=== PATIENT | female | born 1975 | race Caucasian/White ===

== ENCOUNTER 2018-04-13 10:37 | Day surgery (SDC) | payer BC ==
[2018-04-10 12:40] VITALS: BMI 25.0
[~2018-04-13 10:37] MED LIST: DEXAMETHASONE SOD PHOSPHATE 10 MG/ML 1 ML VIAL IV ONE; DEXAMETHASONE SOD PHOSPHATE 4 MG/ML 1 ML VIAL IV ONE; FAMOTIDINE 20 MG/2 ML VIAL IV ONE; LACTATED RINGERS 1,000 ML IV SCH; LIDOCAINE 1% 20 ML VIAL (10MG/ML) FOR IV START INTRADERMA PRN; MELOXICAM 7.5 MG TAB PO ONE; MORPHINE SULFATE 4 MG/ML SYRINGE IV PRN; ONDANSETRON 4 MG/2 ML VIAL IVP ONE; ceFAZolin IN SWFI 2 GM/20 ML SYRINGE IVP ONE
[2018-04-13] MEDS ORDERED: OXYMETAZOLINE 0.05% NASL SPRAY 1 SPRAY BOTTLE EA NOSTRIL ONE (11:15)
[2018-04-13 11:18] VITALS: RESP 16
[2018-04-13] MEDS: ONDANSETRON 4 MG/2 ML VIAL IVP ONE ×2 (11:36→15:30)
[2018-04-13] MEDS ORDERED: EPINEPHrine 1 MG/ML 1 ML AMP IRRIGATION ONE ×2 (12:21→13:03)
[2018-04-13] MEDS ORDERED: LIDOCAINE 1%-EPI 1:100,000 20 ML VIAL SQ ONE ×3 (12:21→13:38)
[2018-04-13] MEDS ORDERED: FLUORESCEIN STRIPS 1 MG STRIP MISCELLANE ONE ×2 (12:22→13:03)
[2018-04-13] MEDS ORDERED: fentaNYL (PF) 50 MCG/ML 2 ML AMP ONE (12:25)
[2018-04-13] MEDS ORDERED: LIDOCAINE 1% INJ 10MG/ML (20 ML MDV) ONE (12:25)
[2018-04-13] MEDS ORDERED: DEXAMETHASONE SOD PHOS (MDV) 100 MG/10 ML VIAL ONE (12:25)
[2018-04-13] MEDS ORDERED: MIDAZOLAM 2 MG/2 ML VIAL ONE (12:25)
[2018-04-13] MEDS ORDERED: SUCCINYLCHOLINE CHLORIDE 100 MG/5 ML SYR IV ONE (12:25)
[2018-04-13] MEDS ORDERED: PROPOFOL 10 MG/ML 20 ML VIAL IV ONE (12:25)
[2018-04-13] MEDS ORDERED: EPINEPHrine 1 MG/ML (MDV) 30 ML VIAL ONE (13:03)
[2018-04-13] MEDS ORDERED: EPINEPHrine 1 MG/ML (MDV) 30 ML VIAL IRRIGATION ONE (13:03)
[2018-04-13 14:10] VITALS: TEMP 97.2
[2018-04-13] MEDS: MEPERIDINE 50 MG/ML SYRINGE IVP ONE ×2 (14:19→14:25)
--- NOTE | 2018-04-13 14:27 | P.OP ---
Date of Procedure: 04/13/18 Preoperative Diagnosis: Chronic sinusitis Deviated nasal septum to the left Bilateral hypertrophy of nasal inferior turbinates, obstructive Postoperative Diagnosis: Same Procedure(s) Performed: Bilateral functional endoscopic sinus surgery with placement of propel Septoplasty Bilateral submucosal resection of the inferior turbinates with outfracturing compression Anesthesia: DIYA Surgeon: James Medina Estimated Blood Loss (ml): 20 Pathology: other (sinonasal) Condition: stable Disposition: PACU Indications for Procedure: This patient has chronic sinus symptoms and has failed medical therapy. Her chronic sinusitis is closed and eustachian tube dysfunction requiring previous mastoidectomy. CAT scan films were reviewed in the CAT scan films revealed chronic right-sided frontal sinusitis bilateral maxillary ethmoid and sphenoid sinusitis. Patient has discolored drainage facial pain and pressure nasal obstruction and improves briefly on antibiotics but as soon as the antibiotics are discontinued problems return. Patient would like to proceed forward with sinus surgery. All risks, benefits, and alternative therapies were discussed. Consent was obtained and all questions were answered. Operative Findings: Patient was found to have a deviated nasal septum to the left there was obstructive along with large obstructive inferior turbinates. The sinuses showed diseased tissue in the maxillary ethmoid and right frontal and sphenoid sinuses Description of Procedure: This patient was taken to the operative room and placed in the supine position. A general inhalation anesthetic was administered to the patient by the department of anesthesia with a functioning IV line in place. The patient was monitored throughout the entire case by the department of anesthesia. The eyes were taped shut for protection. The patient was placed in a slight reverse Trendelenburg position. The patient had previously utilize Afrin nasal spray preoperatively. The nose was evaluated and the septum lateral nasal wall and inferior turbinates were injected with lidocaine 1% with epinephrine 1 100,000 bilaterally. Approximately 10 minutes were allowed wait for full vasoconstrictive effects to take place. At this point a caudal incision was made over the caudal portion of the left septum down to the mucoperichondrium. A mucoperichondrial flap was elevated on the left side and dissection was carried with use of tunnels posteriorly. We then made a crossover incision through the cartilage to the contralateral side and for the mucoperichondrial flap development was performed to the extent of visualization on the contralateral side. After the cartilage was freed with use of several crosshatching incisions and removal of some redundant strips of septal cartilage, the septum was straightened and placed back in the midline. The septum was sutured fixated to the ovarian groove. Excellent straightening occurred and the septum was visibly straight. Incision was closed with a 40 rapid Vicryl. We utilized a running nonlocking fashion for closure of the incision. A quilting stitch was used to reapproximate the septal flaps with use of a 40 rapid Vicryl. We then entered the nose with a 0 and 30 Suarez vinny endoscope. Previous to this we did inject the lateral nasal wall and middle turbinate and uncinate process with lidocaine 1% with epinephrine 1 100,000. Approximately 10 minutes were allowed wait for full vasoconstrictive effects to take place. With use of a microdebrider and a pediatric backbiter, we took down the uncinate process bilaterally. We then opened the maxillary sinuses bilaterally. We utilized a microdebrider for this and entered the maxillary sinuses and removed diseased tissue. This was done bilaterally. After the maxillary sinuses were opened and the diseased tissue was removed we entered the ethmoid bulla and with use of a microdebrider and up-biting blanco and Munir, we followed the fovea frontalis through the basal lamella and into the posterior ethmoid air cells and did a total ethmoidectomy. We removed the anterior ethmoid air cells with use of a microdebrider and up-biting boss. After all the anterior ethmoid air cells were removed we did the same in the posterior ethmoid. A total ethmoidectomy was completed in that fashion with removal of all the anterior and posterior ethmoid air cells and diseased tissue. Once the ethmoids cells were all taken down we then entered the sphenoid sinus medially and inferiorly underneath the inferior attachment of the superior turbinate. The sphenoid sinus was opened entered and diseased tissue was removed bilaterally. This was done with a microdebrider and Blakesley. We then entered the frontal sinuses with a giraffe and up-biting Blakesley entered on the agar nasi cells. We open the RIGHT frontal sinuses (assisted with acclaanh bolden) and removed sinus tissue that was diseased. We explored the frontal sinuse, R.. Xerogel was inserted and minimal bleeding was encountered. Bilateral propel's were placed and a contour was placed on the right side. We reinspected the skull base there is no signs of any orbital penetration or signs of any intracranial penetration. The sugical site was reinspected after the xerogel was placed and no bleeding was seen. Intranasal splints were inserted and fixated at the end of the case. We utilized Triplett nasal splints. There will be removed and the patient returns to the office. Attention was then paid to the inferior turbinates. The bilateral inferior turbinates were hypertrophic and obstructive. We entered the anterior portion of the inferior turbinates with use of a microdebrider. We remove bone and submucosal elements with use of a microdebrider bilaterally. The inferior turbinates underwent a submucosal resection with removal of submucosal tissue and bone. We obtained a much better and normal in size for breathing. The inferior turbinates were then outfractured and compressed with a Boyes nasal elevator. Excellent airway was obtained and was symmetric bilaterally. No bleeding was encountered.
[2018-04-13] MEDS ORDERED: LACTATED RINGERS 1,000 ML IV ONE (15:42)
[2018-04-13] MEDS ORDERED: HYDROcodone/APAP 5-325MG 1 EACH TAB PO ONE (16:00)
[2018-04-13] MEDS ORDERED: PROMETHAZINE INJ 25 MG/ML 1 ML VIAL IVPB ONE (16:25)
[2018-04-13 16:42] VITALS: BP 135/76; PULSE 72
== END 2018-04-13 18:00 | disposition home or self-care (01) ==
LOC: OR 10:37
PROVIDERS: ATTEND Otolaryngology
DX: J32.1 Chronic frontal sinusitis (principal); J32.0 Chronic maxillary sinusitis; J32.2 Chronic ethmoidal sinusitis; J32.3 Chronic sphenoidal sinusitis; J34.2 Deviated nasal septum; J34.3 Hypertrophy of nasal turbinates; H69.90 Unspecified Eustachian tube disorder, unspecified ear; F32.9 Major depressive disorder, single episode, unspecified; G43.909 Migraine, unspecified, not intractable, without status migrainosus; K21.9 Gastro-esophageal reflux disease without esophagitis; T78.40XA Allergy, unspecified, initial encounter; Z88.8 Allergy status to other drugs, medicaments and biological substances; Z79.51 Long term (current) use of inhaled steroids; Z79.899 Other long term (current) drug therapy
CPT/HCPCS: 81025; 88305; 88300; 30520; 30140; 31267; 31259; 31253; C2625 ×2; J2250; J0171; J1100 ×2; J2550; J2175; J2405; J2001; J3010; J0330; J2704; J0690

== ENCOUNTER → 2019-04-24 | Outpatient (CLI) | payer BC ==
[2019-04-24 13:00] VITALS: BP 126/83; PULSE 73; RESP 16; TEMP 97.9; BMI 23.6
--- NOTE | 2019-04-24 13:51 | P.HPOB ---
History of Present Illness H&P Date: 04/24/19 Chief Complaint: The patient is here for her routine gynecologic exam and ma mmogram. This is a 43-year-old within LMP of 2012. She is here to establish with this office. She has been amenorrheic since her endometrial ablation done in 2012. She has noticed occasional discomfort with sexual intercourse. At those times she has occasionally noticed a small amount of blood. She was once told she had a vaginal cyst that caused cause similar symptoms years ago. Review of Systems She had gained about 20 pounds over the last 5 years. Recently she has been successful at taking off 10 pounds with diet and exercise. She denies respiratory or cardiac problems. G.I.: occasional heartburn. Past Medical History Past Medical History: GERD/Reflux, Neurologic Disorder Additional Past Medical History / Comment(s): HX MIGRAINES. SEASONAL ALLERGIES. PAST VIROLOGIST HISTORY: She has no history of STDs. History of Any Multi-Drug Resistant Organisms: None Reported Past Surgical History: Cholecystectomy, Uterine Ablation Additional Past Surgical History / Comment(s): RT TYMPANOPLASTY WITH MASTOID REVISION. Laparoscopy. Endometrial ablation in 2012. Past Anesthesia/Blood Transfusion Reactions: Postoperative Nausea & Vomiting (PONV) Additional Past Anesthesia/Blood Transfusion Reaction / Comment(s): SLOW TO WAKE UP Past Psychological History: Depression Additional Psychological History / Comment(s): NOT ON ANY MEDS-UNDER CONTROL Smoking Status: Never smoker Past Alcohol Use History: Occasional (2 per month) Past Drug Use History: None Reported Additional History: She has been since 2013. 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 - Past Family History Brother(s) Family Medical History: Cancer Additional Family Medical History / Comment(s): Prostate cancer Father Family Medical History: No Reported History Additional Family Medical History / Comment(s): Paternal grandmother had breast cancer. Mother Additional Family Medical History / Comment(s): Obesity. Medications and Allergies Home Medications Medication Instructions Recorded Confirmed Type Famotidine [Pepcid] 20 mg PO BID 04/10/18 04/24/19 History Baclofen 10 mg PO TID 04/24/19 04/24/19 History Melatonin 3 mg PO 04/24/19 History Topiramate [Topamax] 25 mg PO BID 04/24/19 04/24/19 History Allergies Allergy/AdvReac Type Severity Reaction Status Date / Time prochlorperazine AdvReac SEVERE Verified 04/24/19 13:01 [From Compazine] MUSCLE TIGHTENING Exam Vital Signs Temp Pulse Resp BP Pulse Ox 04/24/19 12:54 97.9 F 73 16 126/83 100 Height 5'5", weight 142 pounds, blood pressure 126/83, pulse 73, temperature 97.9, pulse oximeter 100%, BMI 23.6. This is a well-developed well-nourished white female who is alert and oriented times 3 in no acute distress. HEENT: Within normal limits. NECK: Supple without mass or thyromegaly. CHEST AND LUNGS: Clear to auscultation. HEART: Regular rate and rhythm. BREASTS: Are without mass or discharge. AXILLARY EXAM: Negative for adenopathy. BACK: Negative for CVA tenderness. ABDOMEN: Soft, nontender, without palpable masses. PELVIC EXAM: Normal external genitalia. Cervix and vagina appear normal. There is no unusual discharge. There is no evidence of prolapse. The uterus is midposition, slightly retroverted, nongravid size and nontender. There are no palpable adnexal masses or tenderness. RECTAL EXAM: negative for mass or tenderness and is negative for occult blood. EXTREMITIES: Nontender. IMPRESSION: 1. 43-year-old female with normal gynecologic exam whose is status post vasectomy. 2. Amenorrhea following endometrial ablation in 2012. 3. Occasional discomfort with intercourse with no significant physical findings at this time. PLAN: 1. Pap smear was performed. 2. Self breast awareness was discussed with the patient. 3. Baseline screening mammogram will be done today. 4. Weight control was discussed with the patient. We have discussed the importance of good nutrition and regular exercise. 5. She will try to keep track of when she notices discomfort with intercourse and see if she can find any factors that are related to when she notices the symptoms. If she is noticing this more, she will call and will consider further workup such as pelvic ultrasound. 6.She was advised to return in one year for her annual well woman exam.
--- NOTE | 2019-04-24 14:42 | MM ---
Reason for exam: screening (asymptomatic). Baseline mammogram. History: Patient is postmenopausal. Family history of breast cancer in paternal grandmother at age 50. Physical Findings: Dr. Sanches did breast exam. MG Screening Mammo w CAD Bilateral CC and MLO view(s) were taken. The breast tissue is heterogeneously dense. This may lower the sensitivity of mammography. No suspicious abnormality on the right breast. Left central inner anterior depth oval 5mm obscured mass. These results were verbally communicated with the patient and result sheet given to the patient on 04/24/19. ASSESSMENT: Incomplete: need additional imaging evaluation, BI-RAD 0 RECOMMENDATION: Special view mammogram of the left breast.
--- NOTE | 2019-04-24 14:43 | MM ---
Reason for exam: additional evaluation requested from abnormal screening. History: Patient is postmenopausal. Family history of breast cancer in paternal grandmother at age 50. Physical Findings: Breast exam preformed at baseline screening. MG Work Up Mamm w CAD LT Spot compression CC, spot compression MLO, and ML view(s) were taken of the left breast. The breast tissue is heterogeneously dense. This may lower the sensitivity of mammography. There is a 6mm low density persistent mass at anterior depth near the 11:30 position. These results were verbally communicated with the patient and result sheet given to the patient on 04/24/19. ASSESSMENT: Incomplete: need additional imaging evaluation, BI-RAD 0 RECOMMENDATION: Ultrasound of the left breast. (upper inner quadrant)
--- NOTE | 2019-04-24 14:44 | USB ---
Reason for exam: additional evaluation requested from abnormal screening. History: Patient is postmenopausal. Family history of breast cancer in paternal grandmother at age 50. US Breast Workup Limited LT Left limited breast ultrasound including focal area of concern, retroareolar and axilla demonstrates a 0.6 x 0.4 x 0.8cm cystic cluster at 11 o'clock, correlates with mammographic finding, benign. These results were verbally communicated with the patient and result sheet given to the patient on 04/24/19. ASSESSMENT: Benign, BI-RAD 2 RECOMMENDATION: Return to routine screening mammogram schedule for both breasts.
== END ==
LOC: WWCWWP 12:14
PROVIDERS: ATTEND Obstetrics & Gynecology
DX: Z12.31 Encounter for screening mammogram for malignant neoplasm of breast (principal); R92.8 Other abnormal and inconclusive findings on diagnostic imaging of breast
CPT/HCPCS: 77065; 77067

== ENCOUNTER → 2021-08-27 | Outpatient (CLI) | payer BC ==
[2021-08-27 11:29] LABS: ALT 28 U/L (4-34); AST 24 U/L (14-36); African American GFR (CKD) >90 (>60 ml/min/1.73 sqM); Albumin 4.1 g/dL (3.5-5.0); Albumin/Globulin Ratio 1.3; Alkaline Phosphatase 57 U/L (38-126); Anion Gap 8 mmol/L; Blood Urea Nitrogen 13 mg/dL (7-17); Carbon Dioxide 24 mmol/L (22-30); Chloride 107 mmol/L (98-107); Globulin 3.1 g/dL; Glucose 98 mg/dL (74-99); Non-African American GFR(CKD) 88 (>60 ml/min/1.73 sqM); Potassium 4.5 mmol/L (3.5-5.1); Sodium 139 mmol/L (137-145); Total Bilirubin 0.8 mg/dL (0.2-1.3); Total Protein 7.2 g/dL (6.3-8.2)
[2021-08-27 11:39] LABS: Basophils % (A) 0 %; Eosinophils % (A) 0 %; HCT 39.9 % (34.0-46.0); HGB 13.8 gm/dL (11.4-16.0); Lymphocytes # (A) 1.4 k/uL (1.0-4.8); Lymphocytes % (A) 12 %; MCH 33.4 pg (25.0-35.0); MCHC 34.7 g/dL (31.0-37.0); MCV 96.1 fL (80.0-100.0); Mean Platelet Volume 7.5; Monocytes # (A) 0.6 k/uL (0-1.0); Monocytes % (A) 5 %; Neutrophils # (A) 9.6 k/uL (1.3-7.7); Neutrophils % (A) 82 %; Platelet Count 380 k/uL (150-450); RBC 4.15 m/uL (3.80-5.40); RDW 12.2 % (11.5-15.5); WBC 11.7 k/uL (3.8-10.6)
== END | disposition home or self-care (01) ==
LOC: LABWHC1 10:32
PROVIDERS: ATTEND Nurse Practitioner Adult Health
DX: R06.09 Other forms of dyspnea (principal)
CPT/HCPCS: 36415; 80053; 84484; 85025; 85379

== ENCOUNTER → 2021-08-28 | Outpatient (CLI) | payer BC ==
--- NOTE | 2021-08-28 11:21 | CT ---
EXAMINATION TYPE: CT angio chest DATE OF EXAM: 08/28/2021 11:05 AM COMPARISON: Chest CT September 02, 2011 HISTORY: Elevated D dimer CT DLP: 140.6 mGycm Automated exposure control for dose reduction was used. CONTRAST: CTA scan of the thorax is performed with IV Contrast, patient injected with 65 mL of Isovue 370, pulm onary embolism protocol. MIP images are created and reviewed. FINDINGS: LUNGS: Persistent mild/moderate biapical pleural/parenchymal scarring extending posteriorly. Some mot ion artifact limits evaluation particularly for subcentimeter nodules There is no pleural effusion o r pneumothorax seen. No suspicious focal consolidation or groundglass opacity The tracheobronchial t ree is patent. MEDIASTINUM: There is satisfactory enhancement of the pulmonary artery and its branches, there is no CT evidence for pulmonary embolism. There are no greater than 1 cm hilar or mediastinal lymph nodes. No thoracic aortic aneurysm. No cardiomegaly or pericardial effusion is seen. OTHER: Cholecystectomy clips are noted. Underlying scoliotic curvature or positioning. IMPRESSION: No CT evidence for acute pulmonary embolism. No suspicious acute pulmonary process.
== END | disposition home or self-care (01) ==
LOC: RADCTMAIN 09:48
PROVIDERS: ATTEND Nurse Practitioner Adult Health
DX: R79.1 Abnormal coagulation profile (principal)
CPT/HCPCS: 71275; 36415; Q9967

== ENCOUNTER 2023-03-10 14:50 | Inpatient (IN) | payer BC ==
--- NOTE | 2023-03-10 15:45 | ED ---
General Adult HPI - General Chief complaint: Chest Pain Stated complaint: Chest Pain,Sent by PCP Time Seen by Provider: 03/10/23 15:00 Source: patient, RN notes reviewed, old records reviewed Mode of arrival: ambulatory Limitations: no limitations - History of Present Illness Initial comments: Is a 47-year-old female presents emergency Department complaining of chest pressure and shortness of breath. Patient states she's been coughing recently and yesterday went to the urgent care and they did a chest x-ray and told did not see anything and they sent her home with some steroids. Patient states today she was exerting herself in doing a little bit of work when all of a sudden she started having significant chest heaviness and shortness of breath. Patient states that lasted for a total of a half an hour and it is now currently gone. Patient states she still having a little bit of a cough but this is something completely different today than yesterday. Patient denies any headache or numbness or weakness. Patient states she was very lightheaded when this was occurring. Patient denies diabetes hypertension or high cholesterol. Patient denies any smoking history. Patient states she does have family history of heart disease she states her father has heart problems. Patient denies abdominal pain patient denies nausea vomiting diarrhea. - Related Data Home Medications Medication Instructions Recorded Confirmed Famotidine [Pepcid] 20 mg PO BID 04/10/18 04/24/19 Baclofen 10 mg PO TID 04/24/19 04/24/19 Melatonin 3 mg PO 04/24/19 Topiramate [Topamax] 25 mg PO BID 04/24/19 04/24/19 Allergies Allergy/AdvReac Type Severity Reaction Status Date / Time prochlorperazine AdvReac SEVERE Verified 04/24/19 14:10 [From Compazine] MUSCLE TIGHTENING Review of Systems ROS Statement: Those systems with pertinent positive or pertinent negative responses have been documented in the HPI. ROS Other: All systems not noted in ROS Statement are negative. Past Medical History Past Medical History: GERD/Reflux, Neurologic Disorder Additional Past Medical History / Comment(s): HX MIGRAINES. SEASONAL ALLERGIES. 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 History of Any Multi-Drug Resistant Organisms: None Reported Past Surgical History: Cholecystectomy, Uterine Ablation Additional Past Surgical History / Comment(s): RT TYMPANOPLASTY WITH MASTOID REVISION. Laparoscopy. Endometrial ablation in 2013. Past Anesthesia/Blood Transfusion Reactions: Postoperative Nausea & Vomiting (PONV) Additional Past Anesthesia/Blood Transfusion Reaction / Comment(s): SLOW TO WAKE UP Past Psychological History: Depression Past Alcohol Use History: Occasional Past Drug Use History: None Reported - Past Family History Brother(s) Family Medical History: Cancer Additional Family Medical History / Comment(s): Prostate cancer Father Family Medical History: No Reported History Additional Family Medical History / Comment(s): Paternal grandmother had breast cancer. Mother Additional Family Medical History / Comment(s): Obesity. General Exam - General Exam Comments Initial Comments: GENERAL: Patient is well-developed and well-nourished. Patient is nontoxic and well- hydrated and is in mild distress. ENT: Neck is soft and supple. No significant lymphadenopathy is noted. Oropharynx is clear. Moist mucous membranes. Neck has full range of motion without eliciting any pain. EYES: The sclera were anicteric and conjunctiva were pink and moist. Extraocular movements were intact and pupils were equal round and reactive to light. Eyelids were unremarkable. PULMONARY: Unlabored respirations. Good breath sounds bilaterally. No audible rales rhonchi or wheezing was noted. CARDIOVASCULAR: There is a regular rate and rhythm without any murmurs gallops or rubs. Chest pain is not reproducible ABDOMEN: Soft and nontender with normal bowel sounds. SKIN: Skin is clear with no lesions or rashes and otherwise unremarkable. NEUROLOGIC: Patient is alert and oriented x3. Cranial nerves II through XII are grossly intact. Motor and sensory are also intact. Normal speech, volume and content. Symmetrical smile. MUSCULOSKELETAL: Normal extremities with adequate strength and full range of motion. LYMPHATICS: No significant lymphadenopathy is noted PSYCHIATRIC: Normal psychiatric evaluation. Limitations: no limitations Course Vital Signs 03/10/23 03/10/23 03/10/23 15:00 16:02 17:00 Temperature 98.3 F Pulse Rate 78 70 77 Respiratory 16 18 18 Rate Blood Pressure 153/93 138/93 135/79 O2 Sat by Pulse 99 95 97 Oximetry 03/10/23 18:25 Temperature 98.1 F Pulse Rate 65 Respiratory 16 Rate Blood Pressure 139/93 O2 Sat by Pulse 98 Oximetry Medical Decision Making - Medical Decision Making EKG is interpreted by myself shows a sinus rhythm at 67 bpm IL interval 218 QRS 81 Q-T intervals 400 QTC is 416. Patient's EKG shows no ST segment immunizations or depression. Was pt. sent in by a medical professional or institution (, PA, COMPUTER SYSTEMS CONSULTANT, urgent care, hospital, or senior care...) When possible be specific @ -No Did you speak to anyone other than the patient for history (EMS, parent, family, police, friend...)? What history was obtained from this source @ -No Did you review nursing and triage notes (agree or disagree)? Why? @ -I reviewed and agree with nursing and triage notes Were old charts reviewed (outside hosp., previous admission, EMS record, old EK G, old radiological studies, urgent care reports/EKG's, senior care records)? Report findings @ -No old charts were reviewed Differential Diagnosis (chest pain, altered mental status, abdominal pain women, abdominal pain men, vaginal bleeding, weakness, fever, dyspnea, syncope, headache, dizziness, GI bleed, back pain, seizure, CVA, palpatations, mental health, musculoskeletal)? @ -Differential Chest Pain: Stable Angina, Unstable Angina, STEMI, NSTEMI Aortic Dissection, Pneumothorax, Musculoskeletal, Esophageal Spasm GERD, Cholecystitis, Pancreatitis, Zoster, this is not meant to be an all-inclusive list. EKG interpreted by me (3pts min.). @ -As above X-rays interpreted by me (1pt min.). @ -Chest x-ray was interpreted by myself I see no acute abnormalities. CT interpreted by me (1pt min.). @ -None done U/S interpreted by me (1pt. min.). @ -None done What testing was considered but not performed or refused? (CT, X-rays, U/S, labs)? Why? @ -None What meds were considered but not given or refused? Why? @ -None Did you discuss the management of the patient with other professionals (professionals i.e. , RICK, COMPUTER SYSTEMS CONSULTANT, lab, RT, psych nurse, social work specialist, surgical instrument repair specialist, t eacher, account officer, case folder)? Give summary @ -I spoke with some physicians agreed to admit the patient admitted the patient I wrote admitting orders Was smoking cessation discussed for >3mins.? @ -No Was critical care preformed (if so, how long)? @ -No Were there social determinants of health that impacted care today? How? (Homelessness, low income, unemployed, alcoholism, drug addiction, transportation, low edu. Level, literacy, decrease access to med. care, nursing home, rehab)? @ -No Was there de-escalation of care discussed even if they declined (Discuss DNR or withdrawal of care, Hospice)? DNR status @ -No What co-morbidities impacted this encounter? (DM, HTN, Smoking, COPD, CAD, Cancer, CVA, ARF, Chemo, Hep., AIDS, mental health diagnosis, sleep apnea, morbid obesity)? @ -None Was patient admitted / discharged? Hospital course, mention meds given and ro sebastian, prescriptions, significant lab abnormalities, going to OR and other pertinent info. @ -1 patient arrived the chest pain had subsided. Patient remained chest pain- free throughout her ED course. Patient had lab work done that was all within normal range chest x-ray was normal. I spoke with some physicians he agreed to admit the patient admitted the patient consult cardiology Undiagnosed new problem with uncertain prognosis? @ -No Drug Therapy requiring intensive monitoring for toxicity (Heparin, Nitro, Insulin, Cardizem)? @ -No Were any procedures done? @ -No Diagnosis/symptom? @ -Chest pain Acute, or Chronic, or Acute on Chronic? @ -Acute Uncomplicated (without systemic symptoms) or Complicated (systemic symptoms)? @ -Complicated Side effects of treatment? @ -No Exacerbation, Progression, or Severe Exacerbation? @ -No Poses a threat to life or bodily function? How? (Chest pain, USA, NM, pneumonia, PE, COPD, DKA, ARF, appy, cholecystitis, CVA, Diverticulitis, Homicidal, Suicidal, threat to staff... and all critical care pts) @ -Yes this could lead to an NM which could lead to end organ dysfunction - Lab Data Result diagrams: 03/10/23 15:45 03/10/23 15:45 Lab Results 03/10/23 03/10/23 03/10/23 Range/Units 15:45 15:45 15:45 WBC 6.5 (3.8-10.6) k/uL RBC 4.38 (3.80-5.40) m/uL Hgb 13.9 (11.4-16.0) gm/dL Hct 40.8 (34.0-46.0) % MCV 93.0 (80.0-100.0) fL MCH 31.8 (25.0-35.0) pg MCHC 34.2 (31.0-37.0) g/dL RDW 12.0 (11.5-15.5) % Plt Count 333 (150-450) k/uL MPV 6.9 Neutrophils % 82 % Lymphocytes % 15 % Monocytes % 1 % Eosinophils % 1 % Basophils % 0 % Neutrophils # 5.4 (1.3-7.7) k/uL Lymphocytes # 1.0 (1.0-4.8) k/uL Monocytes # 0.1 (0-1.0) k/uL Eosinophils # 0.1 (0-0.7) k/uL Basophils # 0.0 (0-0.2) k/uL PT 10.0 (9.0-12.0) sec INR 0.9 (<1.2) APTT 24.5 (22.0-30.0) sec Sodium 137 (137-145) mmol/L Potassium 4.5 (3.5-5.1) mmol/L Chloride 106 (98-107) mmol/L Carbon Dioxide 22 (22-30) mmol/L Anion Gap 9 mmol/L BUN 11 (7-17) mg/dL Creatinine 0.81 (0.52-1.04) mg/dL Est GFR (CKD-EPI)AfAm >90 (>60 ml/min/1.73 sqM) Est GFR (CKD-EPI)NonAf 86 (>60 ml/min/1.73 sqM) Glucose 108 H (74-99) mg/dL Calcium 9.5 (8.4-10.2) mg/dL Magnesium 2.0 (1.6-2.3) mg/dL Total Bilirubin 1.0 (0.2-1.3) mg/dL AST 24 (14-36) U/L ALT 22 (4-34) U/L Alkaline Phosphatase 75 (38-126) U/L Troponin I (0.000-0.034) ng/mL Total Protein 7.9 (6.3-8.2) g/dL Albumin 4.4 (3.5-5.0) g/dL Influenza Type A (PCR) (Not Detectd) Influenza Type B (PCR) (Not Detectd) RSV (PCR) (Not Detectd) SARS-CoV-2 (PCR) (Not Detectd) 03/10/23 03/10/23 Range/Units 15:45 15:45 WBC (3.8-10.6) k/uL RBC (3.80-5.40) m/uL Hgb (11.4-16.0) gm/dL Hct (34.0-46.0) % MCV (80.0-100.0) fL MCH (25.0-35.0) pg MCHC (31.0-37.0) g/dL RDW (11.5-15.5) % Plt Count (150-450) k/uL MPV Neutrophils % % Lymphocytes % % Monocytes % % Eosinophils % % Basophils % % Neutrophils # (1.3-7.7) k/uL Lymphocytes # (1.0-4.8) k/uL Monocytes # (0-1.0) k/uL Eosinophils # (0-0.7) k/uL Basophils # (0-0.2) k/uL PT (9.0-12.0) sec INR (<1.2) APTT (22.0-30.0) sec Sodium (137-145) mmol/L Potassium (3.5-5.1) mmol/L Chloride (98-107) mmol/L Carbon Dioxide (22-30) mmol/L Anion Gap mmol/L BUN (7-17) mg/dL Creatinine (0.52-1.04) mg/dL Est GFR (CKD-EPI)AfAm (>60 ml/min/1.73 sqM) Est GFR (CKD-EPI)NonAf (>60 ml/min/1.73 sqM) Glucose (74-99) mg/dL Calcium (8.4-10.2) mg/dL Magnesium (1.6-2.3) mg/dL Total Bilirubin (0.2-1.3) mg/dL AST (14-36) U/L ALT (4-34) U/L Alkaline Phosphatase (38-126) U/L Troponin I <0.012 (0.000-0.034) ng/mL Total Protein (6.3-8.2) g/dL Albumin (3.5-5.0) g/dL Influenza Type A (PCR) Not Detected (Not Detectd) Influenza Type B (PCR) Not Detected (Not Detectd) RSV (PCR) Not Detected (Not Detectd) SARS-CoV-2 (PCR) Not Detected (Not Detectd) Disposition Clinical Impression: Chest pain Disposition: ADMITTED IP TO THIS HOSP Referrals: Ramana Clayton MD [Primary Care Provider] - 1-2 days Time of Disposition: 19:00
[2023-03-10 16:07] LABS: Basophils % (A) 0 %; Eosinophils # (A) 0.1 k/uL (0-0.7); Eosinophils % (A) 1 %; HCT 40.8 % (34.0-46.0); HGB 13.9 gm/dL (11.4-16.0); Lymphocytes % (A) 15 %; MCH 31.8 pg (25.0-35.0); MCHC 34.2 g/dL (31.0-37.0); Mean Platelet Volume 6.9; Monocytes # (A) 0.1 k/uL (0-1.0); Monocytes % (A) 1 %; Neutrophils # (A) 5.4 k/uL (1.3-7.7); Neutrophils % (A) 82 %; Platelet Count 333 k/uL (150-450); RBC 4.38 m/uL (3.80-5.40); WBC 6.5 k/uL (3.8-10.6)
[2023-03-10 16:18] LABS: INR 0.9 (<1.2); Partial Thromboplastin Time 24.5 sec (22.0-30.0)
[2023-03-10 16:22] LABS: ALT 22 U/L (4-34); AST 24 U/L (14-36); African American GFR (CKD) >90 (>60 ml/min/1.73 sqM); Albumin 4.4 g/dL (3.5-5.0); Alkaline Phosphatase 75 U/L (38-126); Anion Gap 9 mmol/L; Blood Urea Nitrogen 11 mg/dL (7-17); Calcium 9.5 mg/dL (8.4-10.2); Carbon Dioxide 22 mmol/L (22-30); Chloride 106 mmol/L (98-107); Glucose 108 mg/dL (74-99); Non-African American GFR(CKD) 86 (>60 ml/min/1.73 sqM); Potassium 4.5 mmol/L (3.5-5.1); Sodium 137 mmol/L (137-145); Total Protein 7.9 g/dL (6.3-8.2)
--- NOTE | 2023-03-10 16:39 | XR ---
EXAMINATION TYPE: XR chest 2V DATE OF EXAM: 03/10/2023 COMPARISON: NONE HISTORY: Chest pain TECHNIQUE: Frontal and lateral views of the chest are obtained. FINDINGS: There is no focal air space opacity. No evidence for pneumothorax. No pleural effusion. The cardiac silhouette size is within normal limits. The osseous structures are grossly intact. IMPRESSION: 1. No acute cardiopulmonary process.
[2023-03-10] MEDS ORDERED: NITROGLYCERIN SL TABS 0.4 MG TAB SUBLINGUAL PRN (19:00)
[2023-03-10] MEDS: NITROGLYCERIN OINT 1 INCH/GM PACKET TOPICAL SCH (23:00)
[2023-03-10] MEDS ORDERED: ATORVASTATIN 80 MG TAB PO STA (23:13)
--- NOTE | 2023-03-10 23:14 | P.HPIM ---
History of Present Illness H&P Date: 03/10/23 The patient is a 47-year-old female with a PMH of hypothyroidism who presents to the emergency room with complaints of chest discomfort or shortness of breath. The patient reports that over the past 6-7 days, she has been battling a URI with nonproductive cough and nasal congestion. She reports that earlier today however at around noon she was hanging coats to drive when she suddenly d eveloped a pressure-like substernal chest discomfort, 5 out of 10 on maximal intensity, nonradiating, nonpleuritic, with no alleviating or exacerbating features. The pain was waxing and waning, occurring every hour lasting for a few minutes of time. Patient denies any prior history of such pain. Reports associated shortness of breath and some dizziness. At time of interview, the patient states that her pain is almost entirely resolved. Denied experiencing nausea, vomiting, diaphoresis, palpitations. Patient also reports that she was seen by her PCP and was started on a course of Augmentin and Decadron which have somewhat improved her URI symptoms. Reports occasional nighttime lower ex tremity edema which resolves in the morning. Denies lower extremity pain. Chest x-ray in the emergency room was unremarkable. EKG reveals sinus rhythm with short OR interval was 67 bpm with T-wave inversion in lead 3 as reviewed by me. Laboratory evaluation revealed a WBC count 6.5, hemoglobin 13.9, platelets 333, sodium 137, potassium 4.5, BUN 11, creatinine 0.81, troponin less than 0.012. Influenza, RSV, and Covid testing was negative. ED documentation reviewed and case discussed with ED provider. Review of systems: Pertinent positives and negatives as discussed in HPI, a complete review of systems was performed and all other systems are negative. Physical examination: Vital signs reviewed General: non toxic, no distress, appears at stated age, overweight Derm: no unusual rashes/lesions, warm Head: atraumatic, normocephalic, symmetric Eyes: EOMI, no lid lag, anicteric sclera, pupils equal round reactive to light ENT: Nose and ears atraumatic Neck: No cervical lymphadenopathy, trachea midline, supple Mouth: no lip lesion, mucus membranes moist Cardiovascular: S1S2 reg, no murmur, positive dorsalis pedis pulse bilateral, no edema Lungs: CTA bilateral, no rhonchi, no rales, no accessory muscle use Abdominal: soft, nontender to palpation, no guarding Ext: muscle strength 5 out of 5 in all 4 extremities grossly, no gross muscle atrophy, no contractures, Neuro: CN II-XI grossly intact, no gross focal neuro deficits Psych: Alert, oriented, appropriate affect Assessment: Chest pain, rule out ACS. URI Chronic conditions: Hypothyroidism Imaging: Chest x-ray in the emergency room was unremarkable. EKG reveals sinus rhythm with short OR interval was 67 bpm with T-wave inversion in lead 3 as reviewed by me. Data Review: Laboratory evaluation revealed a WBC count 6.5, hemoglobin 13.9, platelets 333, sodium 137, potassium 4.5, BUN 11, creatinine 0.81, troponin less than 0.012. I nfluenza, RSV, and Covid testing was negative. Vital signs in the emergency room were BP 139/93, SpO2 98% on room air, pulse 65, and temp 98.1F. Plan: Cardiology consulted Cardiac monitoring Trend troponin Status post aspirin 325 mg by mouth in the emergency room Lipitor ordered DVT prophylaxis: Heparin subcu The patient is admitted with an anticipated greater than 2 midnight stay for evaluation of chest pain CODE STATUS: Full Code Discussed with: Patient Anticipated discharge place: Home Past Medical History Past Medical History: GERD/Reflux, Neurologic Disorder Additional Past Medical History / Comment(s): HX MIGRAINES. SEASONAL ALLERGIES. 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 History of Any Multi-Drug Resistant Organisms: None Reported Past Surgical History: Cholecystectomy, Uterine Ablation Additional Past Surgical History / Comment(s): RT TYMPANOPLASTY WITH MASTOID REVISION. Laparoscopy. Endometrial ablation in 2012. Past Anesthesia/Blood Transfusion Reactions: Postoperative Nausea & Vomiting (PONV) Additional Past Anesthesia/Blood Transfusion Reaction / Comment(s): SLOW TO WAKE UP Past Psychological History: Depression Additional Psychological History / Comment(s): NOT ON ANY MEDS-UNDER CONTROL Smoking Status: Never smoker Past Alcohol Use History: Occasional Past Drug Use History: None Reported - Past Family History Brother(s) Family Medical History: Cancer Additional Family Medical History / Comment(s): Prostate cancer Father Family Medical History: No Reported History Additional Family Medical History / Comment(s): Paternal grandmother had breast cancer. Mother Additional Family Medical History / Comment(s): Obesity. Medications and Allergies Home Medications Medication Instructions Recorded Confirmed Type Amoxic-Pot Clav 875-125Mg 1 tab PO BID 03/10/23 03/10/23 History [Augmentin 875-125] Atogepant [Qulipta] 60 mg PO W/LUNCH 03/10/23 03/10/23 History FLUoxetine HCL [PROzac] 20 mg PO HS 03/10/23 03/10/23 History Famotidine 40 mg PO W/LUNCH 03/10/23 03/10/23 History Levothyroxine Sodium [Synthroid] 50 mcg PO DAILY 03/10/23 03/10/23 History Omeprazole 40 mg PO HS 03/10/23 03/10/23 History ZOLMitriptan [Zomig] 5 mg PO BID PRN 03/10/23 03/10/23 History dexAMETHasone [Decadron] 4 mg PO DAILY 03/10/23 03/10/23 History Allergies Allergy/AdvReac Type Severity Reaction Status Date / Time prochlorperazine Allergy Dyspnea Verified 03/10/23 19:52 [From Compazine] Physical Exam Vitals: Vital Signs Temp Pulse Pulse Resp BP BP Pulse Ox 03/10/23 20:05 97.8 F 66 18 143/97 95 03/10/23 19:29 67 18 137/89 98 03/10/23 18:25 98.1 F 65 16 139/93 98 03/10/23 17:00 77 18 135/79 97 03/10/23 16:02 70 18 138/93 95 03/10/23 15:00 98.3 F 78 16 153/93 99 Intake and Output 03/10/23 03/10/23 03/11/23 14:59 22:59 06:59 Other: # Voids 1 Weight 78.925 kg Results CBC & Chem 7: 03/10/23 15:45 03/10/23 15:45 Labs: Abnormal Lab Results - Last 24 Hours (Table) 03/10/23 Range/Units 15:45 Glucose 108 H (74-99) mg/dL Thrombosis Risk Factor Assmnt - Choose All That Apply Any of the Below Risk Factors Present?: Yes Each Factor Represents 1 point: Age 41-60 years, Obesity (BMI >25), Swollen legs (current) Other Risk Factors: No Other congenital or acquired thrombophilia - If yes, enter type in comment: No Thrombosis Risk Factor Assessment Total Risk Factor Score: 3 Thrombosis Risk Factor Assessment Level: Moderate Risk
[2023-03-10] MEDS ORDERED: FLUoxetine HCL 20 MG CAP PO SCH (23:15)
[2023-03-10] MEDS ORDERED: PANTOPRAZOLE 40 MG TABLET PO SCH (23:15)
[2023-03-11] MEDS: HEPARIN SODIUM,PORCINE/PF 5,000 UNIT/0.5 ML SYRINGE SQ SCH ×2 (00:01→08:55)
[2023-03-11] MEDS: NITROGLYCERIN OINT 1 INCH/GM PACKET TOPICAL SCH (04:54)
[2023-03-11] MEDS ORDERED: LEVOTHYROXINE 50 MCG TAB PO SCH (06:30)
[2023-03-11] MEDS ORDERED: dexAMETHasone 4 MG TAB PO SCH (09:00)
[2023-03-11] MEDS ORDERED: AMOXIC-POT CLAV 875-125MG 1 EACH TAB PO SCH (09:00)
[2023-03-11] MEDS ORDERED: ASPIRIN 325 MG TAB PO SCH (09:00)
[2023-03-11 09:06] LABS: Chol/HDL Ratio 3.05 Ratio; LDL Cholesterol,Calculated 128.4 mg/dL (0.0-131.0)
[2023-03-11] MEDS ORDERED: ASPIRIN 81 MG PO SCH (10:09)
--- NOTE | 2023-03-11 10:29 | P.CRDCN ---
History of Present Illness History of present illness: HISTORY OF PRESENT ILLNESS: This is a 47-year-old female with a past medical history significant for hypothyroidism and depression. Patient does not follow with a peoplesoft. We have been asked to see the patient in consultation for chest pain. Patient examined at the bedside. Patient states that she recently went to her primary care physician was diagnosed with a sinus infection and placed on steroids and antibiotics. The patient states that she was at home and went to take clothes outside and developed chest pressure. She states that she has been coughing a lot but not having any sputum production. She felt as though she couldn't take a deep breath. She states that this felt similar to when she had pneumonia in the past. During examination, the patient was noted to have crackles that cleared with coughing. Vital signs are stable. * EKG reveals sinus mechanism with nonspecific ST-T wave changes. No signs of acute ischemia. * Chest xray negative for acute process * Laboratory data: WBC 6.5. Hemoglobin 13.9. Platelet count 333. Sodium 137. Potassium 4.5. BUN 11. Creatinine 0.81. Troponin negative 3. * Current home cardiac medications include none REVIEW OF SYSTEMS: At the time of my exam: CONSTITUTIONAL: Denies fever or chills. HEENT: Denies blurred vision, vision changes, or eye pain. Denies hemoptysis CARDIOVASCULAR: Denies chest pain. Denies orthopnea. Denies PND. Denies palpitations RESPIRATORY: Denies shortness of breath. GASTROINTESTINAL: Denies abdominal pain. Denies nausea or vomiting. HEMATOLOGIC: Denies bleeding disorders. GENITOURINARY: Denies any blood in urine. SKIN: Denies pruitis. Denies rash. PHYSICAL EXAM: VITAL SIGNS: Reviewed. GENERAL: Well-developed in no acute distress. HEENT: Head is normocephalic. Pupils are equal, round. Sclerae anicteric. Mucous membranes of the mouth are moist. Neck supple. No JVD or thyromegaly LUNGS: Respirations even and unlabored. Lungs essentially clear to auscultation bilaterally. HEART: Regular rate and rhythm. S1 and S2 heard. ABDOMEN: Soft. Nondistended. Nontender. EXTREMITIES: Normal range of motion. No clubbing or cyanosis. Peripheral pulses intact. No lower extremity edema NEUROLOGIC: Awake and alert. Oriented x 3. ASSESSMENT: Chest pain, pleuritic, troponin negative 3 Recent diagnosis of sinus infection, possible bronchitis Hypothyroidism Depression PLAN: An acute coronary event has been ruled out Obtain 2-D echo to assess cardiac structure and function Decrease aspirin to 81 mg daily Obtain d-dimer Further recommendations pending patient's course Patient to follow up post discharge with Dr. Maldonado Nurse practitioner note has been reviewed by physician. Signing provider agrees with the documented findings, assessment, and plan of care. Past Medical History Past Medical History: GERD/Reflux, Neurologic Disorder Additional Past Medical History / Comment(s): HX MIGRAINES. SEASONAL ALLERGIES. PAST [employer] HISTORY: She has no history of STDs. History of Any Multi-Drug Resistant Organisms: None Reported Past Surgical History: Cholecystectomy, Uterine Ablation Additional Past Surgical History / Comment(s): RT TYMPANOPLASTY WITH MASTOID REVISION. Laparoscopy. Endometrial ablation in 2012. Past Anesthesia/Blood Transfusion Reactions: Postoperative Nausea & Vomiting (PONV) Additional Past Anesthesia/Blood Transfusion Reaction / Comment(s): SLOW TO WAKE UP Past Psychological History: Depression Additional Psychological History / Comment(s): NOT ON ANY MEDS-UNDER CONTROL Smoking Status: Never smoker Past Alcohol Use History: Occasional Past Drug Use History: None Reported - Past Family History Brother(s) Family Medical History: Cancer Additional Family Medical History / Comment(s): Prostate cancer Father Family Medical History: No Reported History Additional Family Medical History / Comment(s): Paternal grandmother had breast cancer. Mother Additional Family Medical History / Comment(s): Obesity. Medications and Allergies Home Medications Medication Instructions Recorded Confirmed Type Amoxic-Pot Clav 875-125Mg 1 tab PO BID 03/10/23 03/10/23 History [Augmentin 875-125] Atogepant [Qulipta] 60 mg PO W/LUNCH 03/10/23 03/10/23 History FLUoxetine HCL [PROzac] 20 mg PO HS 03/10/23 03/10/23 History Famotidine 40 mg PO W/LUNCH 03/10/23 03/10/23 History Levothyroxine Sodium [Synthroid] 50 mcg PO DAILY 03/10/23 03/10/23 History Omeprazole 40 mg PO HS 03/10/23 03/10/23 History ZOLMitriptan [Zomig] 5 mg PO BID PRN 03/10/23 03/10/23 History dexAMETHasone [Decadron] 4 mg PO DAILY 03/10/23 03/10/23 History Allergies Allergy/AdvReac Type Severity Reaction Status Date / Time prochlorperazine Allergy Dyspnea Verified 03/10/23 19:52 [From Compazine] Physical Exam Vitals: Vital Signs Temp Pulse Pulse Resp BP BP Pulse Ox 03/11/23 08:44 15 03/11/23 06:32 98 F 67 15 124/82 03/11/23 00:18 97.9 F 69 16 110/65 96 03/10/23 20:05 97.8 F 66 18 143/97 95 03/10/23 19:29 67 18 137/89 98 03/10/23 18:25 98.1 F 65 16 139/93 98 03/10/23 17:00 77 18 135/79 97 03/10/23 16:02 70 18 138/93 95 03/10/23 15:00 98.3 F 78 16 153/93 99 Intake and Output 03/10/23 03/11/23 03/11/23 22:59 06:59 14:59 Other: Voiding Method Toilet # Voids 1 2 Weight 78.925 kg Results 03/10/23 15:45 03/10/23 15:45 Cardiac Enzymes 03/10/23 03/10/23 03/10/23 Range/Units 15:45 15:45 19:19 AST 24 (14-36) U/L Troponin I <0.012 <0.012 (0.000-0.034) ng/mL 03/10/23 Range/Units 22:08 AST (14-36) U/L Troponin I <0.012 (0.000-0.034) ng/mL Coagulation 03/10/23 Range/Units 15:45 PT 10.0 (9.0-12.0) sec APTT 24.5 (22.0-30.0) sec CBC 03/10/23 Range/Units 15:45 WBC 6.5 (3.8-10.6) k/uL RBC 4.38 (3.80-5.40) m/uL Hgb 13.9 (11.4-16.0) gm/dL Hct 40.8 (34.0-46.0) % Plt Count 333 (150-450) k/uL Comprehensive Metabolic Panel 03/10/23 Range/Units 15:45 Sodium 137 (137-145) mmol/L Potassium 4.5 (3.5-5.1) mmol/L Chloride 106 (98-107) mmol/L Carbon Dioxide 22 (22-30) mmol/L BUN 11 (7-17) mg/dL Creatinine 0.81 (0.52-1.04) mg/dL Glucose 108 H (74-99) mg/dL Calcium 9.5 (8.4-10.2) mg/dL AST 24 (14-36) U/L ALT 22 (4-34) U/L Alkaline Phosphatase 75 (38-126) U/L Total Protein 7.9 (6.3-8.2) g/dL Albumin 4.4 (3.5-5.0) g/dL Current Medications Generic Name Dose Route Start Last Admin Trade Name Freq PRN Reason Stop Dose Admin Amoxicillin/Clavulanate Potassium 1 each 03/11/23 09:00 Amoxic-Pot Clav 875-125mg 1 Each Tab PO BID [facility] Protocol Aspirin 325 mg 03/11/23 09:00 Aspirin 325 Mg Tab PO DAILY [facility] Dexamethasone 4 mg 03/11/23 09:00 Dexamethasone 4 Mg Tab PO DAILY [facility] Fluoxetine HCl 20 mg 03/10/23 23:15 03/10/23 23:32 Fluoxetine Hcl 20 Mg Cap PO 20 mg HS [facility] Administration Heparin Sodium (Porcine) 5,000 unit 03/11/23 00:00 03/11/23 00:01 Heparin Sodium,Porcine/Pf 5,000 Unit/0.5 Ml Syringe SQ Not Given Q8HR [facility] Levothyroxine Sodium 50 mcg 03/11/23 06:30 03/11/23 06:02 Levothyroxine 50 Mcg Tab PO 50 mcg DAILY@0630 LEONARDO Administration Nitroglycerin 0.4 mg 03/10/23 19:00 Nitroglycerin Sl Tabs 0.4 Mg Tab SUBLINGUAL Q5M PRN Chest Pain Nitroglycerin 1 inch 03/11/23 00:00 03/11/23 04:54 Nitroglycerin Oint 1 Inch/Gm Packet TOPICAL Not Given Q6HR [facility] Pantoprazole Sodium 40 mg 03/10/23 23:15 03/10/23 23:33 Pantoprazole 40 Mg Tablet PO 40 mg HS [facility] Administration Intake and Output 04/03/11/23 03/11/23 22:59 06:59 14:59 Other: Voiding Method Toilet # Voids 1 2 Weight 78.925 kg 03/10/23 15:45 03/10/23 15:45
--- NOTE | 2023-03-11 10:44 | CA ---
Transthoracic Echo Report Name: Ashley Keenan Age: 47 Gender: F : 1975 Exam Date: 03/11/2023 09:43 Exam Location: [facility] Ht (in): 65 Wt (lb): 175 Ordering Physician: Cyndi Ivory Attending/Referring Phys: [id number], Dianelys Anchorman Rocio Zambrano, SLIM Procedure CPT: Indications: LV function Cardiac Hx: Technical Quality: Excellent Contrast 1: Total Dose (mL): Contrast 2: Total Dose (mL): MEASUREMENTS (Male / Female) Normal Values 2D ECHO LV Diastolic Diameter PLAX 4.6 cm 4.2 - 5.9 / 3.9 - 5.3 cm LV Systolic Diameter PLAX 2.9 cm IVS Diastolic Thickness 1.0 cm 0.6 - 1.0 / 0.6 - 0.9 cm LVPW Diastolic Thickness 1.1 cm 0.6 - 1.0 / 0.6 - 0.9 cm LV Relative Wall Thickness 0.4 RV Internal Dim ED PLAX 3.0 cm LA Systolic Diameter LX 3.3 cm 3.0 - 4.0 / 2.7 - 3.8 cm LA Volume 42.8 cm??? 18 - 58 / 22 - 52 cm??? M-MODE Aortic Root Diameter MM 2.9 cm MV E Point Septal Separation 0.4 cm AV Cusp Separation MM 2.0 cm DOPPLER AV Peak Velocity 113.7 cm/s AV Peak Gradient 5.2 mmHg MV Area PHT 3.7 cm??? Mitral E Point Velocity 66.4 cm/s Mitral A Point Velocity 49.7 cm/s Mitral E to A Ratio 1.3 MV Deceleration Time 203.7 ms MV E' Velocity 8.9 cm/s Mitral E to MV E' Ratio 7.4 TR Peak Velocity 225.5 cm/s TR Peak Gradient 20.3 mmHg Right Ventricular Systolic Press 25.2 mmHg FINDINGS Left Ventricle Left ventricular ejection fraction is estimated at 60-65 %. Left ventricular cavity size normal. Left ventricular wall thickness normal. No obvious regional wall motion abnormalities. Right Ventricle Normal right ventricular size and function. Right ventricular systolic pressure within normal limits. Right Atrium Normal right atrial size. Left Atrium Normal left atrial size. Mitral Valve Structurally normal mitral valve. No mitral stenosis, regurgitation or prolapse. Aortic Valve Trileaflet aortic valve. No aortic valve stenosis or regurgitation. Tricuspid Valve Structurally normal tricuspid valve. No tricuspid stenosis, regurgitation or prolapse. Pulmonic Valve Structurally normal pulmonic valve. No pulmonic regurgitation. Pericardium Normal pericardium. No pericardial effusion. Aorta Normal size aortic root and proximal ascending aorta. CONCLUSIONS Normal LV systolic function Normal RV size and function No valvular abnormalities Previewed by: Dr. Triston Maldonado MD (Electronically Signed) Final Date: 11 March 2023 10:43
--- NOTE | 2023-03-11 12:25 | CT ---
EXAMINATION TYPE: CT chest angio for PE CT DLP: 253.5 mGycm, Automated exposure control for dose reduction was used. DATE OF EXAM: 03/11/2023 12:19 PM COMPARISON: CTA chest 08/28/2021, chest radiograph 03/10/2023. CLINICAL INDICATION:Female, 47 years old with history of elevated d-dimer, SOB; elevated d-dimer TECHNIQUE/CONTRAST: CTA scan of the thorax is performed with IV Contrast, patient injected with 65cc mL of Isovue 300, pu lmonary embolism protocol. MIP images are created and reviewed. FINDINGS: Pulmonary Artery: There is no evidence for a filling defect within the pulmonary vasculature to sugge st acute pulmonary embolism. The pulmonary artery is of normal size. Lungs/Pleura: No evidence of focal consolidation, pleural effusion or pneumothorax. Biapical pleural- parenchymal scarring. Airway: Large airways are patent. Heart: Heart is within normal limits for size. No pericardial effusion. Vasculature: No evidence of aortic aneurysm. Mediastinum: No gross evidence of adenopathy. Musculoskeletal: No acute osseous abnormalities Soft Tissues: Unremarkable. Lower neck: No significant findings. Upper Abdomen: Postcholecystectomy changes. IMPRESSION: No evidence of pulmonary embolism or acute thoracic process.
--- NOTE | 2023-03-11 13:11 | P.DS ---
Providers Date of admission: 03/10/23 19:00 Expected date of discharge: 03/11/23 Attending physician: James Cheung MD Consults: 03/10/23 19:00 Consult Physician Urgent Consulting Provider: [facility] Consult Reason/Comments: Chest pain Do you want consulting provider notified?: Yes Primary care physician: Ramana العراقي [facility] Course: Discharge Diagnosis: Atypical chest pain [facility] Hospital Course: 47-year-old female with a PMH of hypothyroidism who presents to the emergency room with complaints of chest discomfort or shortness of breath. Chest x-ray in the emergency room was unremarkable. EKG reveals sinus rhythm with short MN interval was 67 bpm with T-wave inversion in lead 3. Laboratory evaluation revealed a WBC count 6.5, hemoglobin 13.9, platelets 333, sodium 137, potassium 4.5, BUN 11, creatinine 0.81, troponin less than 0.012. Influenza, RSV, and Covid testing was negative. Cardiology was consulted. ACS ruled out. Echocardiogram showed normal LV systolic function, normal RV size and function, no valvular abnormalities. D-dimer was elevated, CTA chest did not show any acute PE or any other acute chest process. Patient to follow-up with cardiology in the clinic. Patient seen and examined at bedside. Vital signs reviewed and stable. General: nontoxic, no distress, appears at stated age Derm: warm, dry Head: atraumatic, normocephalic, symmetric Eyes: EOMI, no lid lag, anicteric sclera Mouth: no lip lesion, mucus membranes moist Cardiovascular: S1S2 reg, no murmur Lungs: CTA bilateral, no rhonchi, no rales , no accessory muscle use Abdominal: soft, nontender to palpation, no guarding, no appreciable organomegaly Ext: no gross muscle atrophy, no edema, no contractures Neuro: CN II-XI grossly intact, no focal neuro deficits Psych: Alert, oriented, appropriate affect A total of 33 minutes of time were spent preparing this complex discharge summary. Patient was discharged on 03/11/23 at 13:08. Patient Condition at Discharge: Stable Plan - Discharge Summary Discharge Rx Participant: No New Discharge Prescriptions: New Aspirin 81 mg PO DAILY #30 tab Continue Omeprazole 40 mg PO HS Levothyroxine Sodium [Synthroid] 50 mcg PO DAILY Atogepant [Qulipta] 60 mg PO W/LUNCH dexAMETHasone [Decadron] 4 mg PO DAILY Amoxic-Pot Clav 875-125Mg [Augmentin 875-125] 1 tab PO BID FLUoxetine HCL [PROzac] 20 mg PO HS ZOLMitriptan [Zomig] 5 mg PO BID PRN PRN Reason: Migraine Headache Famotidine 40 mg PO W/LUNCH Discharge Medication List Amoxic-Pot Clav 875-125Mg [Augmentin 875-125] 1 tab PO BID 03/10/23 [History] Atogepant [Qulipta] 60 mg PO W/LUNCH 03/10/23 [History] FLUoxetine HCL [PROzac] 20 mg PO HS 03/10/23 [History] Famotidine 40 mg PO W/LUNCH 03/10/23 [History] Levothyroxine Sodium [Synthroid] 50 mcg PO DAILY 03/10/23 [History] Omeprazole 40 mg PO HS 03/10/23 [History] ZOLMitriptan [Zomig] 5 mg PO BID PRN 03/10/23 [History] dexAMETHasone [Decadron] 4 mg PO DAILY 03/10/23 [History] Aspirin 81 mg PO DAILY #30 tab 03/11/23 [Rx] Follow up Appointment(s)/Referral(s): Triston Maldonado MD [STAFF PHYSICIAN] - 2 Weeks Ramana Clayton MD [Primary Care Provider] - 1-2 days Patient Instructions/Handouts: Chest Pain (DC) Discharge Disposition: HOME SELF-CARE
[2023-03-11 16:24] LABS: Chol/HDL Ratio 3.02 Ratio; VLDL Calculation 15.74 mg/dL (5.00-40.00)
[2023-03-11 16:40] VITALS: BP 120/78; PULSE 71; RESP 18; TEMP 98.2
[2023-03-12] MEDS ORDERED: ASPIRIN 81 MG PO SCH (09:00)
== END 2023-03-11 15:10 | disposition home or self-care (01) | DRG 313 ==
LOC: EC 14:50 → 6NMEDSUR 19:00
PROVIDERS: ADMIT Student in an Organized Health Care Education/Training Program; ATTEND Student in an Organized Health Care Education/Training Program
PROC: B246ZZ4 Ultrasonography of Right and Left Heart, Transesophageal (ICD-10-PCS; principal; 2023-03-11)
DX: R07.89 Other chest pain (principal); E03.9 Hypothyroidism, unspecified; Z79.890 Hormone replacement therapy; G43.909 Migraine, unspecified, not intractable, without status migrainosus; F32.A Depression, unspecified; J40 Bronchitis, not specified as acute or chronic; K21.9 Gastro-esophageal reflux disease without esophagitis; J30.2 Other seasonal allergic rhinitis; Z87.01 Personal history of pneumonia (recurrent); Z88.8 Allergy status to other drugs, medicaments and biological substances; Z90.49 Acquired absence of other specified parts of digestive tract; Z82.49 Family history of ischemic heart disease and other diseases of the circulatory system
CPT/HCPCS: 36415; 71046; 71275; 80053; 80061; 83036; 83735; 84484; 85025; 85379; 85610; 85730; 87636; 93005; 93306; 94760; 99285

== ENCOUNTER → 2025-04-02 | Outpatient (CLI) | payer BC ==
--- NOTE | 2025-04-03 11:00 | MR ---
EXAMINATION TYPE: MR brain and iac wo/w con DATE OF EXAM: 04/02/2025 6:07 PM COMPARISON: None. Prior CT from outside institution is unavailable for comparison. 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 TECHNIQUE: Multiplanar, multiecho imaging on a 3.0 Светлана magnet is performed through the brain. Atte ntion is paid to the internal auditory canals with thin section imaging. Postcontrast imaging is per formed through the internal auditory canals. IV Contrast: 7.5 mL Gadobutrol (None, if empty) FINDINGS: Craniovertebral junction appears normal. Pituitary is unremarkable. Optic chiasm appears no rmal. Diffusion-weighted imaging is performed. No suspicious hyperintensity is present to suggest an acute intracranial infarct or acute ischemic area. Signal within the brain appears normal. Cerebellum appears intact. No ischemic change infarct or mass is identified. Thin section imaging is performed through the internal auditory canals and cerebellar pontine angles. No cerebellar pontine angle masses are evident. The internal auditory canals appear normal without expansion or erosion. Small amount of fluid may be within the right mastoid air cells. Correlate for mastoiditis. Postcontrast imaging was performed. No suspicious enhancement is evident within the internal audito ry canals or the included portions of the brain. Retention cysts within the inferior right maxillary sinus. IMPRESSION: 1. No acute intracranial process. 2. No suspicious changes in the cerebellum or internal auditory canals. 3.There may be some mild right mastoiditis. [facility], , 04/03/2025 10:57 AM
== END | disposition home or self-care (01) ==
LOC: RADMRIMAIN 16:29
PROVIDERS: ATTEND Psychiatry & Neurology Neurology
DX: C71.6 Malignant neoplasm of cerebellum (principal)
CPT/HCPCS: 70553; A9585

== ENCOUNTER → 2025-04-04 | Outpatient (CLI) | payer BC ==
[2025-04-04 14:54] LABS: Basophils # (A) 0.04 X 10*3/uL (0.00-0.10); Basophils % (A) 0.8 %; Eosinophils # (A) 0.11 X 10*3/uL (0.04-0.35); Eosinophils % (A) 2.3 %; HGB 14.6 g/dL (12.0-15.0); Lymphocytes # (A) 1.82 X 10*3/uL (0.90-5.00); Lymphocytes % (A) 38.5 %; MCH 32.1 pg (27.0-32.0); MCHC 33.2 g/dL (32.0-37.0); MCV 96.7 FL (80.0-97.0); Mean Platelet Volume 9.2 FL (9.5-12.2); Monocytes # (A) 0.58 X 10*3/uL (0.20-1.00); Monocytes % (A) 12.3 %; NRBC Per 100 WBC 0 X 10*3/uL (0.00-0.01); Neutrophils # (A) 2.17 X 10*3/uL (1.80-7.70); Neutrophils % (A) 45.9 %; Platelet Count 360 X 10*3/uL (140-440); RBC 4.55 X 10*6/uL (4.10-5.20); RDW 11.4 % (11.5-14.5); WBC 4.73 X 10*3/uL (4.50-10.00)
[2025-04-04 15:37] LABS: ALT 21 U/L (8-44); AST 23 U/L (13-35); Albumin 4.4 g/dL (3.8-4.9); Albumin/Globulin Ratio 1.57 Ratio (1.60-3.17); Alkaline Phosphatase 74 U/L (41-126); BUN/Creat Ratio 15.89 Ratio (12.00-20.00); Blood Urea Nitrogen 14.3 mg/dL (9.0-27.0); Calcium 10.2 mg/dL (8.7-10.3); Carbon Dioxide 25.3 mmol/L (21.6-31.8); Chloride 103 mmol/L (96-109); Chol/HDL Ratio 2.45 Ratio; Globulin 2.8 g/dL (1.6-3.3); Glucose 89 mg/dL (70-110); LDL Cholesterol,Calculated 127.1 mg/dL (0.0-131.0); Potassium 4.2 mmol/L (3.5-5.5); Sodium 140 mmol/L (135-145); T4, Free (Free Thyroxine) 0.91 ng/dL (0.80-1.80); Total Bilirubin 0.9 mg/dL (0.3-1.2); Total Protein 7.2 g/dL (6.2-8.2)
== END | disposition home or self-care (01) ==
LOC: LABWHC1 09:07
PROVIDERS: ATTEND Family Medicine
DX: Z00.00 Encounter for general adult medical examination without abnormal findings (principal); Z13.1 Encounter for screening for diabetes mellitus; E03.8 Other specified hypothyroidism
CPT/HCPCS: 36415; 80053; 80061; 83036; 83525; 84439; 84443; 84481; 85025